=== PATIENT | female | born 2000 | race Two or more races ===

== ENCOUNTER 2024-02-02 19:09 | Emergency (ER) | payer OTHER ==
[~2024-02-02] VITALS: Ht 167.6 cm; Wt 65.8 kg
[~2024-02-02 19:09] MED LIST: EUCERIN SKIN C396 GM TOP; IBU600 MG PO
[2024-02-02] MEDS ORDERED: KURVELO-28 TAB1 EAC1 PO (19:57)
[2024-02-02] MEDS ORDERED: DIPHENHYDRAMINE HCL 50 MG/ML VIAL 1ML IM STA (23:01)
[2024-02-02] MEDS ORDERED: KETOROLAC TROMETHAMINE 30 MG VIAL IM STA (23:01)
== END 2024-02-03 00:11 | disposition home or self-care (01) ==
LOC: ER 19:09
DX: L55.0 Sunburn of first degree (principal)